=== PATIENT | male | born 1930 | race Caucasian/White ===

== ENCOUNTER 2019-09-21 14:00 | Observation (INO) | payer MEDICARE ==
--- NOTE | 2019-09-21 14:49 | RAD REPORT ---
EXAM DESCRIPTION: Lis Single View09/21/2019 2:34 pm CLINICAL HISTORY: Chest pain COMPARISON: none FINDINGS: The lungs appear clear of acute infiltrate. The heart is normal size IMPRESSION: No acute abnormalities displayed
[2019-09-21 15:30] LABS: Absolute Lymphocytes (CBC) 0.8 K/uL (0.7-4.9); Basophils % 0.6 % (0-1.3); Hematocrit 36.8 % (39.6-49.0); Lymphocytes % 20.2 % (15.3-44.8); RBC Red Blood Cell Count 3.68 M/uL (4.33-5.43)
[2019-09-21 15:31] LABS: Protime INR 1.29
[2019-09-21 15:40] LABS: ALT/SGPT 18 U/L (12-78); AST/SGOT 15 U/L (15-37); Albumin 4.3 g/dL (3.4-5.0); Alkaline Phosphatase 70 U/L (45-117); BUN Blood Urea Nitrogen 17 mg/dL (7-18); Bicarbonate 25 mmol/L (21-32); Bilirubin Direct 0.2 mg/dL (0-0.2); Bilirubin Total 0.7 mg/dL (0.2-1.0); Glucose Level 108 mg/dL (74-106); Magnesium 2.1 mg/dL (1.8-2.4); NT PRO-BNP 2108 pg/mL (<450); Potassium 3.9 mmol/L (3.5-5.1); Protein, Total 7.7 g/dL (6.4-8.2); Sodium Level 143 mmol/L (136-145); Troponin (Emerg Dept Use Only) < 0.02 ng/mL (0.0-0.045)
--- NOTE | 2019-09-21 16:01 | ER ---
Nurse's Notes [facility] Name: Reinaldo Gongora Age: 89 yrs Sex: Male : 1930 Arrival Date: 09/21/2019 Time: 14:03 Bed 6 Private MD: Donnie Morel H Diagnosis: Chest pain, unspecified Presentation: 09/20 14:19 Chief complaint: Patient states: BP was 220/100 at home. Has left sided neck pain and ll1 left arm pain. Arvin chest pressure. No cough or fever. Coronavirus screen: Proceed with normal triage. Patient denies a cough. Patient denies shortness of breath or difficulty breathing. Patient denies measured and/or subjective temperature greater than 100.4F prior to today's visit. Patient denies travel on a cruise ship or to a country the [facility] currently lists as an affected area. Patient denies contact with known and/or suspected case of COVID-19. Ebola Screen: Patient denies travel to an Ebola-affected area in the 21 days before illness onset. Initial Sepsis Screen: Does the patient meet any 2 criteria? No. Patient's initial sepsis screen is negative. Does the patient have a suspected source of infection? No. Patient's initial sepsis screen is negative. Risk Assessment: Do you want to hurt yourself or someone else? Patient reports no desire to harm self or others. Onset of symptoms was September 21, 2019. 14:19 Method Of Arrival: Ambulatory 1 14:19 Acuity: HA[place] 2 ll1 Historical: - Allergies: 14:26 IV dye; ll1 - PMHx: 14:21 Hypertension; cardiac stents; ll1 14:26 Hypothyroidism; ll1 - PSHx: 14:26 Heart stents; ll1 - Immunization history:: Adult Immunizations up to date. - Social history:: Patient/guardian denies using alcohol, street drugs, tobacco products, Smoking status: Patient/guardian denies using tobacco, the patient reports quitting approximately 40 years ago. Screenin:03 Abuse screen: Denies threats or abuse. Denies injuries from another. Nutritional iw screening: No deficits noted. Tuberculosis screening: No symptoms or risk factors identified. Fall Risk IV access (20 points). Assessment: 15:02 General: Appears in no apparent distress. Behavior is calm, cooperative. Pain: iw Complains of pain in left lateral aspect of neck Pain currently is 0 out of 10 on a pain scale. Neuro: Level of Consciousness is awake, alert, obeys commands, Oriented to person, place, time, situation, Moves all extremities. Full function. Cardiovascular: Denies chest pain, shortness of breath, Patient's skin is warm and dry. Rhythm is atrial fibrillation. Respiratory: Respiratory effort is even, unlabored, Respiratory pattern is regular, symmetrical. GI: Abdomen is flat, non-distended. Derm: Skin is intact, is healthy with good turgor. Musculoskeletal: Range of motion: intact in all extremities. 15:29 Reassessment: Patient appears in no apparent distress at this time. Patient and/or iw family updated on plan of care and expected duration. Pain level reassessed. Patient is alert, oriented x 3, equal unlabored respirations, skin warm/dry/pink. Vital Signs: 14:19 BP 218 / 125; Pulse 80; Resp 17; Temp 98.1; Pulse Ox 99% ; Pain 4/10; ll1 15:01 BP 158 / 62; Pulse 51; Resp 16; Pulse Ox 98% on R/A; Pain 0/10; iw 15:45 BP 160 / 70; Pulse 59; Resp 16; Pulse Ox 100% on R/A; Pain 0/10; iw 16:50 BP 178 / 83; Pulse 53; Resp 15; Pulse Ox 97% on R/A; dh3 ED Course: 14:03 Patient arrived in ED. mr 14:03 Donnie Morel DO is Private Physician. mr 14:13 Derrick Amaya PA is PHCP. jmm 14:13 Ruben Mead MD is Attending Physician. m 14:21 Triage completed. ll1 14:21 Arm band placed on Patient placed in an exam room, on a stretcher. ll1 14:22 Bhumika Obregon, RN is Primary Nurse. iw 14:35 XRAY Chest (1 view) In Process Unspecified. EDMS 14:43 EKG done, by ED staff, reviewed by Derrick HAWLEY. dh3 15:02 Initial lab(s) drawn, by tx, sent to lab. Inserted saline lock: 20 gauge in right iw antecubital area, using aseptic technique. Blood collected. 15:08 Patient has correct armband on for positive identification. iw 16:01 Kaz Llamas DO is Hospitalizing Provider. amber 17:13 No provider procedures requiring assistance completed. Patient admitted, IV remains in iw place. Administered Medications: 16:05 Not Given (Hemodynamic Parameters): Labetalol 5 mg IVP once iw Outcome: 16:01 Decision to Hospitalize by Provider. amber 17:13 Admitted to Tele accompanied by tech, via wheelchair, with chart, Report called to wilmer Malcolm RN 17:13 Condition: good 17:13 Discharge instructions given to patient, Instructed on the need for admit, Demonstrated understanding of instructions. 17:33 Patient left the ED. Signatures: Dispatcher [employer] EDMS Derrick Amaya PA PA jmm Rivera, Mary mr Bhumika Obregon, RN Lidia Mercado [facility] Horacio Travis RN RN ll1
--- NOTE | 2019-09-21 16:02 | EDPHYS ---
Physician Documentation [facility] Name: Reinaldo Gongora Age: 89 yrs Sex: Male : 1930 Arrival Date: 09/21/2019 Time: 14:03 Bed 6 Private MD: Donnie Morel H ED Physician Ruben Mead HPI: 09/20 15:57 This 89 yrs old Male presents to ER via Ambulatory with complaints of High jmm Blood Pressure. 15:57 The patient has elevated blood pressure and discovered this at home. Onset: The jmm symptoms/episode began/occurred today. Modifying factors: The symptoms are aggravated by The symptoms are alleviated by. Associated signs and symptoms: Pertinent positives: chest pain. This is an 89 year old male with a history of htn, cad, hypothyroidism that presents to the ED with complaints of elevated blood pressure with pain radiating from his left arm to the left side of his jaw. Pain began to radiate into his chest as well just prior to arrival. . Historical: - Allergies: 14:26 IV dye; ll1 - PMHx: 14:21 Hypertension; cardiac stents; ll1 14:26 Hypothyroidism; ll1 - PSHx: 14:26 Heart stents; ll1 - Immunization history:: Adult Immunizations up to date. - Social history:: Patient/guardian denies using alcohol, street drugs, tobacco products, Smoking status: Patient/guardian denies using tobacco, the patient reports quitting approximately 40 years ago. ROS: 15:57 Constitutional: Negative for fever, chills, and weight loss, Cardiovascular: Negative jmm for chest pain, palpitations, and edema, Respiratory: Negative for shortness of breath, cough, wheezing, and pleuritic chest pain. 15:57 MS/extremity: Positive for pain. 15:57 All other systems are negative. Exam: 15:57 Constitutional: This is a well developed, well nourished patient who is awake, alert, jmm and in no acute distress. Head/Face: atraumatic. Eyes: EOMI, no conjunctival erythema appreciated ENT: Moist Mucus Membranes Neck: Trachea midline, Supple Chest/axilla: Normal chest wall appearance and motion. Cardiovascular: Regular rate and rhythm. No edema appreciated Respiratory: Normal respirations, no respiratory distress appreciated Abdomen/GI: Non distended, soft Back: Normal ROM Skin: General appearance color normal MS/ Extremity: Moves all extremities, no obvious deformities appreciated, no edema noted to the lower extremities Neuro: Awake and alert, normal gait Psych: Behavior is normal, Mood is normal, Patient is cooperative and pleasant 15:57 ECG was reviewed by the Attending Physician. Vital Signs: 14:19 BP 218 / 125; Pulse 80; Resp 17; Temp 98.1; Pulse Ox 99% ; Pain 4/10; ll1 15:01 BP 158 / 62; Pulse 51; Resp 16; Pulse Ox 98% on R/A; Pain 0/10; iw 15:45 BP 160 / 70; Pulse 59; Resp 16; Pulse Ox 100% on R/A; Pain 0/10; iw 16:50 BP 178 / 83; Pulse 53; Resp 15; Pulse Ox 97% on R/A; dh3 MDM: 14:19 Patient medically screened. [facility] 16:00 Data reviewed: vital signs, nurses notes. Counseling: I had a detailed discussion with [facility] the patient and/or guardian regarding: the historical points, exam findings, and any diagnostic results supporting the discharge/admit diagnosis, lab results, radiology results, the need for further work-up and treatment in the hospital. ED course: I discussed the patient with Jung Floyd ENP whom accepted patient for Dr. Llamas. . 09/20 14:20 Order name: Basic Metabolic Panel; Complete Time: 15:43 [facility] 09/20 14:20 Order name: CBC with Diff; Complete Time: 15:38 [facility] 09/20 14:20 Order name: LFT's; Complete Time: 15:43 [facility] 09/20 14:20 Order name: Magnesium; Complete Time: 15:43 [facility] 09/20 14:20 Order name: NT PRO-BNP; Complete Time: 15:43 [facility] 09/20 14:20 Order name: PT-INR; Complete Time: 15:38 [facility] 09/20 14:20 Order name: Troponin (emerg Dept Use Only); Complete Time: 15:43 [facility] 09/20 14:20 Order name: XRAY Chest (1 view); Complete Time: 14:52 [facility] 09/20 14:20 Order name: EKG; Complete Time: 14:22 [facility] 09/20 14:20 Order name: Cardiac monitoring; Complete Time: 15:10 [facility] 09/20 14:20 Order name: EKG - Nurse/Tech; Complete Time: 14:50 [facility] 09/20 14:20 Order name: IV Saline Lock; Complete Time: 15:10 [facility] 09/20 14:20 Order name: Labs collected and sent; Complete Time: 15:10 [facility] 09/20 14:20 Order name: O2 Per Protocol; Complete Time: 15:10 [facility] 09/20 14:20 Order name: O2 Sat Monitoring; Complete Time: 15:10 [facility] EC:57 Rate is 56 beats/min. Rhythm is irregularly irregular, A fib. QRS [place] is Normal. PA jmm interval is normal. QRS interval is normal. QT interval is normal. No Q waves. T waves are Normal. No ST changes noted. Reviewed by me. Administered Medications: 16:05 Not Given (Hemodynamic Parameters): Labetalol 5 mg IVP once iw Disposition: 17:49 Co-signature as Attending Physician, Ruben Mead MD. rn Disposition: 09/21/19 16:01 Hospitalization ordered by Kaz Llamas for Observation. Preliminary diagnosis is Chest pain, unspecified. - Bed requested for Telemetry/MedSurg (observation). - Status is Observation. iw - Condition is Stable. - Problem is new. - Symptoms are unchanged. Signatures: Dispatcher [employer] Susana Uribe RN RN dw Mickail, Joel, PA PA jmm Williams, Irene, Ruben Patel RN, MD MD rn Botello, Elizabeth eb Lewis, Lynsay RN RN ll1 Corrections: (The following items were deleted from the chart) 16:18 16:01 Hospitalization Ordered by Kaz Llamas DO for Observation. Preliminary eb diagnosis is Chest pain, unspecified. Bed requested for Telemetry/MedSurg (observation). Status is Observation. Condition is Stable. Problem is new. Symptoms are unchanged. [facility] 16:36 16:18 09/21/2019 16:01 Hospitalization Ordered by Kaz Llamas DO for Observation. Preliminary diagnosis is Chest pain, unspecified. Bed requested for Telemetry/MedSurg (observation). Status is Observation. Condition is Stable. Problem is new. Symptoms are unchanged. eb 16:37 16:36 09/21/2019 16:01 Hospitalization Ordered by Kaz Llamas DO for Observation. dw Preliminary diagnosis is Chest pain, unspecified. Bed requested for Telemetry/MedSurg (observation). Status is Observation. Condition is Stable. Problem is new. Symptoms are unchanged. dw 17:33 16:37 09/21/2019 16:01 Hospitalization Ordered by Kaz Llamas DO for Observation. iw Preliminary diagnosis is Chest pain, unspecified. Bed requested for Telemetry/MedSurg (observation). Status is Observation. Condition is Stable. Problem is new. Symptoms are unchanged. dw
--- NOTE | 2019-09-21 16:44 | P.HP ---
Certification for Inpatient Patient admitted to: Observation With expected LOS: <2 Midnights Patient will require the following post-hospital care: None Practitioner: I am a practitioner with admitting privileges, knowledge of patient current condition, hospital course, and medical plan of care. Services: Services provided to patient in accordance with Admission requirements found in Title 42 Section 412.3 of the Code of Federal Regulations <Jung Floyd - Last Filed: 09/21/19 16:39> Patient admitted to: Observation <Kaz Llamas - Last Filed: 09/21/19 18:12> Patient History Date of Service: 09/21/19 Primary Care Provider: KALYN Reason for admission: Chest pain, hypertensive urgency History of Present Illness: 89-year-old male with medical history of CAD, atrial fibrillation on chronic anticoagulation therapy, hypertension, hypothyroidism presented to the emergency department with a 2 day history of left-sided neck and arm pain. Patient reports that this morning he checked his blood pressure and noticed that the systolic was around 225. Patient reports that he has persisted with the left-sided neck and arm pain an Hypertension since then. Patient also reports that when he had his stent placement he is experiencing similar symptoms. Ini tial cardiac enzymes were negative and EKG was only significant for atrial fibrillation. ED provider wishes to admit patient for further evaluation management. When I saw the patient in the emergency department he was not in any pain and very pleasant. Patient was hypertensive at around 200 systolic with a heart rate of around 55. Patient reports that she takes irbesartan at home for his blood pressure but had recently began cutting in half on its own. Patient will be admitted for further evaluation and management. Home medications list reviewed: Yes - Past Medical/Surgical History Has patient received pneumonia vaccine in the past: No Diabetic: No -: CAD -: Hypertension -: Atrial fibrillation on chronic anticoagulation therapy -: Hypothyroidism -: Heart catheterization with stent placement Psychosocial/ Personal History: Patient lives currently with his son at home. - Social History Smoking Status: Former smoker Alcohol use: No CD- Drugs: No Caffeine use: Yes Place of Residence: Home <Jung Floyd - Last Filed: 09/21/19 16:39> Date of Service: 09/21/19 - Family History Family History: Reviewed- Non-Contributory <Kaz Llamas - Last Filed: 09/21/19 18:12> Review of Systems General: Unremarkable Eyes: Unremarkable ENT: Unremarkable Respiratory: Unremarkable Cardiovascular: As per HPI Gastrointestinal: Unremarkable Genitourinary: Unremarkable Musculoskeletal: Other (Neck and left arm pain) Integumentary: Unremarkable Neurological: Unremarkable Lymphatics: Unremarkable <Jung Floyd - Last Filed: 09/21/19 16:39> Physical Examination - Physical Exam General: Alert, In no apparent distress, Oriented x3 HEENT: Atraumatic, Normocephalic Neck: Supple Respiratory: Clear to auscultation bilaterally, Normal air movement Cardiovascular: No edema, Normal S1 S2, No rubs, Irregular heart rate/rhythm (AFib) Capillary refill: <2 Seconds Gastrointestinal: Normal bowel sounds, Soft and benign Musculoskeletal: No clubbing, No swelling Integumentary: No rashes, No breakdown Neurological: Normal speech, Normal tone - Studies Laboratory Data (last 24 hrs) 09/21/19 15:00: PT 15.1 H, INR 1.29 09/21/19 15:00: WBC 3.9 L, Hgb 12.1 L, Hct 36.8 L, Plt Count 145 L 09/21/19 15:00: Sodium 143, Potassium 3.9, BUN 17, Creatinine 1.14, Glucose 108 H, Magnesium 2.1, Total Bilirubin 0.7, AST 15, ALT 18, Alkaline Phosphatase 70 <Jung Floyd - Last Filed: 09/21/19 16:39> - Studies Laboratory Data (last 24 hrs) 09/21/19 15:00: PT 15.1 H, INR 1.29 09/21/19 15:00: WBC 3.9 L, Hgb 12.1 L, Hct 36.8 L, Plt Count 145 L 09/21/19 15:00: Sodium 143, Potassium 3.9, BUN 17, Creatinine 1.14, Glucose 108 H, Magnesium 2.1, Total Bilirubin 0.7, AST 15, ALT 18, Alkaline Phosphatase 70 <Kaz Llamas - Last Filed: 09/21/19 18:12> Assessment and Plan - Plan Assessment Chest pain Essential hypertension with hypertensive urgency Atrial fibrillation on chronic anticoagulation therapy CAD Hypothyroidism Plan Chest pain: Cardiology will be consulted on this case. Cardiac enzymes will be trended, echocardiogram has been ordered. Patient will remain on telemetry throughout this hospitalization. Patient will remain on his home medication Eliquis. Await further input from cardiology at this time. Anticipate discharge the next 24-48 hr. Essential hypertension with hypertensive urgency: Will continue patient's home medications and add Norvasc p.o.. Will also provide hydralazine for as needed blood pressure control. Will continue to monitor patient's blood pressure throughout this hospitalization. Atrial fibrillation on chronic anticoagulation therapy: Will continue with patient's home medication Eliquis and obtain echocardiogram. Await further input from cardiology. CAD: Will continue with patient's home medications Eliquis. Hypothyroidism: Will obtain TSH and free T4 and morning labs to assess thyroid function. Will adjust as needed. Discharge Plan: Home Plan to discharge in: 24 Hours - Advance Directives Does patient have a Living Will: Yes Does patient have a Durable POA for Healthcare: Yes - Code Status/Comfort Care Code Status Assessed: Yes (Patient is full code) Critical Care: No Time Spent Managing Pts Care (In Minutes): 55 <Jung Floyd - Last Filed: 09/21/19 16:39> - Plan Patient examined. Plan of care discussed in detail with nurse practitioner. Agree with plan of care. Will increase blood pressure medication for better control. Will hold off on Norvasc at this time. Patient likely has underlying chronic diastolic CHF. Patient admits stopping his Lasix. Edema noted. Suspect acute on chronic diastolic CHF at this time. Will start IV Lasix. Will teach on 1500 cc per day fluid restriction. Will continue with other measures to further evaluate chest pain. Will plan to discuss with Cardiology tomorrow. Anticipate improvement over the next 24 hr. Advanced care planning address in detail. Patient does not desire any home health or physical therapy at discharge. Advanced directives also address in detail. Patient wishes to be full code. <Kaz Llamas - Last Filed: 09/21/19 18:12>
[2019-09-21] MEDS: HYDRALAZINE HCL 20 MG/ML VIAL IV PRN (17:02)
[2019-09-21] MEDS ORDERED: HYDRALAZINE HCL 20 MG/ML VIAL ONE (17:05)
[2019-09-21] MEDS ORDERED: ACETAMINOPHEN 500 MG TAB PO PRN (17:43)
[2019-09-21] MEDS ORDERED: ONDANSETRON 4 MG/2 ML VIAL IV PRN (17:43)
[2019-09-21 17:57] VITALS: BMI 25.2
[2019-09-21] MEDS: IRBESARTAN 150 MG TAB PO SCH (20:51)
[2019-09-21] MEDS: APIXABAN 5 MG TABLET PO SCH (20:52)
[2019-09-21] MEDS ORDERED: PNEUMOCOCCAL VACCINE 0.5 ML IMVAC ONE (21:00)
[2019-09-21 21:43] LABS: CKMB Creatine Kinase MB 1.5 ng/mL (0.3-3.6); Creatine Phosphokinase 36 U/L (39-308); Troponin I < 0.02 ng/mL (0.0-0.045)
[2019-09-22] MEDS: HYDRALAZINE HCL 20 MG/ML VIAL IV PRN (04:28)
[2019-09-22 05:50] LABS: CKMB Creatine Kinase MB 1.1 ng/mL (0.3-3.6); Troponin I 0.02 ng/mL (0.0-0.045)
[2019-09-22 05:52] LABS: Magnesium 2.2 mg/dL (1.8-2.4); Potassium 3.6 mmol/L (3.5-5.1)
[2019-09-22 05:53] LABS: Thyroid Stimulating Hormone 5.13 uIU/mL (0.360-3.740)
[2019-09-22 05:59] LABS: Absolute Lymphocytes (CBC) 0.9 K/uL (0.7-4.9); Basophils % 0.6 % (0-1.3); Hematocrit 33.1 % (39.6-49.0); Lymphocytes % 22.3 % (15.3-44.8); MPV 11.2 fL (7.6-11.3); RBC Red Blood Cell Count 3.31 M/uL (4.33-5.43)
--- NOTE | 2019-09-22 07:52 | EKG ---
Test Date: 2019-09-21 Test Time: 14:45:39 Receiving Teller: YULISA MEASUREMENT RESULTS: Intervals: Rate: 56 VT: QRSD: 102 QT: 418 QTc: 403 [place]: P: VT: QRS: -19 T: 26 INTERPRETIVE STATEMENTS: Atrial fibrillation with slow ventricular response Abnormal ECG No previous ECG available for comparison Electronically Signed On 09-22-19 07:51:47 CDT by Camron Duffy
[2019-09-22] MEDS ORDERED: DOXAZOSIN 2 MG TAB ONE (08:51)
[2019-09-22] MEDS ORDERED: DOXAZOSIN 4 MG TAB PO SCH (09:00)
[2019-09-22] MEDS ORDERED: DOXAZOSIN MESYLATE 8 MG PO SCH (09:00)
[2019-09-22] MEDS ORDERED: FUROSEMIDE 20 MG/ 2ML VIAL IV SCH (09:00)
[2019-09-22] MEDS ORDERED: POTASSIUM CL SA 10 MEQ TAB PO ONE (09:00)
--- NOTE | 2019-09-22 09:04 | P.DS ---
Admission Date: 09/21/19 Discharge Date: 09/22/19 Primary Care Provider: Dr. Morel; Cardiology-Dr. Duffy Disposition: ROUTINE DISCHARGE Discharge Condition: GOOD Reason for Admission: Chest pain, hypertensive urgency Consultations: Cardiology-Dr. Duffy Procedures: CXR: Unremarkable Medical Problem List: Chest pain Essential hypertension with hypertensive urgency Atrial fibrillation on chronic anticoagulation therapy Suspect underlying chronic diastolic CHF CAD BPH Hypothyroidism Brief History of Present Illness: 89-year-old male presented to the emergency room with elevated blood pressure. Patient with history of hypertension, CAD, hypothyroidism and atrial fibrillation on chronic anti coagulation therapy. Reported elevated blood pressure. He also reported some mild chest pain to the left shoulder. Patient found to have elevated blood pressures in the emergency room. Patient was admitted for further evaluation. Hospital Course: Presented with this pain and elevated blood pressure secondary to essential hypertension with hypertensive urgency. Patient with underlying atrial fibrillation on chronic anti coagulation therapy, CAD, likely chronic diastolic CHF, BPH, and hypothyroidism. Patient had elevated blood pressure upon admission. Patient reports that he has been cutting his medication. He also ran out of his Cardura. Patient was seen and evaluated by Cardiology. Blood pressures have improved with Reinitiation of his blood pressure medication. Case reviewed with cardiology. Patient did receive some Lasix due to mild edema to the lower extremity. No further intervention required. At discharge patient will continue with irbesartan 300 mg daily and Cardura 8 mg daily. Recommend to maintain blood pressures less 150/80. Further adjustment can be done by his PCP. Patient may follow up with cardiology in 1-2 weeks. Patient with atrial fibrillation on chronic anti coagulation therapy. Patient remained stable at this time. Patient not on rate control medication due to history of bradycardia. At discharge patient will continue with Eliquis 5 mg 1 pill twice daily. Patient likely with underlying chronic diastolic CHF. Patient received some Lasix. Edema to the lower extremity improved. Patient has taking Lasix in the past. At discharge will recommend to continue a 1500 cc per day fluid restriction and low-salt diet. He is to monitor his weight daily. If his weight increases more than 5 lb he is to contact cardiology for further recommendation. I will provide Lasix 20 mg daily as needed for edema. This can be further addressed by cardiology. Patient with hypothyroidism. This has remained stable. At discharge patient will continue with his current medication-levothyroxine 50 mcg daily. Patient with BPH. Patient ran out of his medication. At discharge he will continue with Cardura 8 mg daily. Vital Signs/Physical Exam: Temp Pulse Resp BP Pulse Ox 97.7 F 62 17 147/66 H 98 09/22/19 04:00 09/22/19 04:00 09/22/19 04:00 09/22/19 04:00 09/22/19 04:00 General: Alert, In no apparent distress, Oriented x3, Cooperative HEENT: Atraumatic Neck: Supple Respiratory: Clear to auscultation bilaterally, Normal air movement Cardiovascular: Normal pulses, Regular rate/rhythm Gastrointestinal: Normal bowel sounds, Soft and benign, Non-distended, No tenderness, No masses, No rebound, No guarding Musculoskeletal: No erythema, No tenderness, No warmth Integumentary: No tenderness/swelling, No erythema, No warmth, No cyanosis Neurological: Normal speech, Normal strength at 5/5 x4 extr, Normal tone, Normal affect Laboratory Data at Discharge: WBC 3.9 K/uL (4.3-10.9) L 09/22/19 04:37 Hgb 10.9 g/dL (13.6-17.9) L 09/22/19 04:37 Hct 33.1 % (39.6-49.0) L 09/22/19 04:37 Plt Count 122 K/uL (152-406) L 09/22/19 04:37 PT 15.1 SECONDS (9.5-12.5) H 09/21/19 15:00 INR 1.29 09/21/19 15:00 Sodium 146 mmol/L (136-145) H 09/22/19 04:37 Potassium 3.6 mmol/L (3.5-5.1) 09/22/19 04:37 BUN 17 mg/dL (7-18) 09/22/19 04:37 Creatinine 1.02 mg/dL (0.55-1.3) 09/22/19 04:37 Glucose 93 mg/dL (74-106) 09/22/19 04:37 Magnesium 2.2 mg/dL (1.8-2.4) 09/22/19 04:37 Total Bilirubin 0.7 mg/dL (0.2-1.0) 09/21/19 15:00 AST 15 U/L (15-37) 09/21/19 15:00 ALT 18 U/L (12-78) 09/21/19 15:00 Alkaline Phosphatase 70 U/L (45-117) 09/21/19 15:00 Troponin I 0.02 ng/mL (0.0-0.045) 09/22/19 04:37 Triglycerides 51 mg/dL (<150) 09/22/19 04:37 Cholesterol 139 mg/dL (<200) 09/22/19 04:37 HDL Cholesterol 46 mg/dL (40-60) 09/22/19 04:37 Cholesterol/HDL Ratio 3.02 09/22/19 04:37 Home Medications: Apixaban [Eliquis] 5 mg PO BID 09/21/19 Irbesartan 300 mg PO DAILY 09/21/19 Levothyroxine [Synthroid*] 50 mcg PO [id number] 09/21/19 Doxazosin Mesylate 8 mg PO DAILY #30 09/22/19 Furosemide [Lasix] 20 mg PO DAILY PRN #15 tab 09/22/19 New Medications: Doxazosin Mesylate 8 mg PO DAILY #30 Furosemide [Lasix] 20 mg PO DAILY PRN #15 tab PRN Reason: Shortness Of Breath Patient Discharge Instructions: 1. Follow up with PCP in 1 week to follow up this hospitalization. 2. Presented with this pain and elevated blood pressure secondary to essential hypertension with hypertensive urgency. Patient with underlying atrial fibrillation on chronic anti coagulation therapy, CAD, likely chronic diastolic CHF, BPH, and hypothyroidism. Patient had elevated blood pressure upon admission. Patient reports that he has been cutting his medication. He also ran out of his Cardura. Patient was seen and evaluated by Cardiology. Blood pressures have improved with Reinitiation of his blood pressure medication. Case reviewed with cardiology. Patient did receive some Lasix due to mild edema to the lower extremity. No further intervention required. At discharge patient will continue with irbesartan 300 mg daily and Cardura 8 mg daily. Recommend to maintain blood pressures less 150/80. Further adjustment can be done by his PCP. Patient may follow up with cardiology in 1- 2 weeks. 3. Patient with atrial fibrillation on chronic anti coagulation therapy. Patient remained stable at this time. Patient not on rate control medication due to history of bradycardia. At discharge patient will continue with Eliquis 5 mg 1 pill twice daily. 4. Patient likely with underlying chronic diastolic CHF. Patient received some Lasix. Edema to the lower extremity improved. Patient has taking Lasix in the past. At discharge will recommend to continue a 1500 cc per day fluid restriction and low-salt diet. He is to monitor his weight daily. If his weight increases more than 5 lb he is to contact cardiology for further recommendation. I will provide Lasix 20 mg daily as needed for edema. This can be further addressed by cardiology. 5. P atient with hypothyroidism. This has remained stable. At discharge patient will continue with his current medication-levothyroxine 50 mcg daily. 6. Patient with BPH. Patient ran out of his medication. At discharge he will continue with Cardura 8 mg daily. Diet: AHA Activity: Fall precautions Time spent managing pt's care (in minutes): 55
[2019-09-22] MEDS: IRBESARTAN 150 MG TAB PO SCH (09:12)
[2019-09-22] MEDS: APIXABAN 5 MG TABLET PO SCH (09:12)
--- NOTE | 2019-09-22 10:07 | CON ---
Date of Consultation: 09/22/2019 Mr. Gongora is an 89-year-old male. He was admitted to Dr. Llamas' service on 09/21/2019. I saw the p atient on 09/22/2019. Reason For Consultation: Hypertensive crisis, atypical chest pain, atrial fibrillation. History Of Present Illness: Mr. Gongora is an 89-year-old white male. He was previously a patient of Dr. Martinez. He continues to see Dr. Morel. He has chronic atrial fibrillation for which he takes Eliq uis. He also has a history of hypertension, hypothyroidism, coronary artery disease. He is status p ost stent. He came in with elevated blood pressure and left arm pain that has resolved after the blo od pressure came down. Apparently, he is supposed to take irbesartan and doxazosin at home. He has been out of the doxazosin for a while and he has been splitting his irbesartan dose by half. At one point, he was taken metoprolol, but that caused him to be very bradycardic, so he was switched to the irbesartan. He also takes Synthroid for hypothyroidism. He is on Eliquis for atrial fibrillation. He is asymptomatic now. He denied PND, orthopnea, pedal edema, palpitations, or syncope. Denied an y fever or chills or cough. Allergies: IODINE. Review of Systems: Negative. Social History: Negative. Family History: Noncontributory. Medications: Listed earlier. Physical Examination: General: Mr. Gongora is 89. He is very pleasant. Appeared his stated age. Vital Signs: Stable. He was afebrile. He was in atrial fibrillation at a rate of 62, blood pressur e was 147/66. HEENT: Negative. Neck: Supple with no bruit. Chest: Clear. Cardiac: Regular rhythm and rate with S4 gallops. No murmurs or rubs. Abdomen: Benign. Extremities: Revealed no clubbing, cyanosis, or edema. Impression And Plan: Atypical chest pain with left arm pain that has resolved. He has normal tropon in. This may have been secondary to hypertension and certainly could be secondary to recurrent coron brenna artery disease. I am comfortable with Mr. Gongora going home. I think he needs to have an outpati ent echocardiogram and outpatient Lexiscan and we will see him in the near future. He should continu e his home medications including Eliquis, irbesartan, doxazosin, and Synthroid. He should avoid beta -blockers as that made him very bradycardic at one point. He is already at a rate of 62 only with at rial fibrillation. Continue Eliquis. He needs to continue his Synthroid for his hypothyroidism. Th e patient can go home today. I will arrange for a followup. I will discuss the case further with Dr Sylvia Llamas. PEYMAN/PAULINO Voice ID: [id number] Report ID: [id number]
[2019-09-22 10:09] VITALS: BP 146/73; TEMP 97.4
[2019-09-22 10:59] VITALS: O2SAT 96
[2019-09-23] MEDS ORDERED: LEVOTHYROXINE SOD 0.05 MG TABLET PO SCH (06:00)
== END 2019-09-22 10:31 | disposition home or self-care (01) ==
LOC: ER 14:00 → ERHOLD 16:26 → 2ND 17:16
PROVIDERS: ADMIT Family Medicine; ATTEND Family Medicine
DX: R07.89 Other chest pain (principal); I16.0 Hypertensive urgency; I10 Essential (primary) hypertension; I48.91 Unspecified atrial fibrillation; I25.10 Atherosclerotic heart disease of native coronary artery without angina pectoris; E03.9 Hypothyroidism, unspecified; Z79.01 Long term (current) use of anticoagulants; R60.0 Localized edema; N40.0 Benign prostatic hyperplasia without lower urinary tract symptoms; Z79.899 Other long term (current) drug therapy; Z95.5 Presence of coronary angioplasty implant and graft; Z87.891 Personal history of nicotine dependence
CPT/HCPCS: 36415; 71045; 80048; 80061; 80076; 82550; 82553; 83735; 83880; 84439; 84443; 84484; 85025; 85610; 93005; 99285; G0378; J0360; U0002